=== PATIENT | male | born 1960 | race Two or more races ===

== ENCOUNTER 2021-06-14 12:12 | Emergency (ER) | payer OTHER ==
[~2021-06-14] VITALS: Ht 175.3 cm; Wt 74.8 kg
[2021-06-14] MEDS ORDERED: IBUPROFEN 800 MG TAB PO ONE ×2 (15:19→15:30)
[2021-06-14] MEDS ORDERED: ACETAMINOPHEN 500 MG TAB PO ONE (15:30)
[2021-06-14 15:47] VITALS: BP 127/106
== END 2021-06-14 15:45 | disposition home or self-care (01) ==
LOC: EDBD 12:12 → ER 12:12
DX: S62.610A Displaced fracture of proximal phalanx of right index finger, initial encounter for closed fracture (principal); W01.0XXA Fall on same level from slipping, tripping and stumbling without subsequent striking against object, initial encounter; Y93.89 Activity, other specified; Y92.89 Other specified places as the place of occurrence of the external cause; Y99.8 Other external cause status
CPT/HCPCS: 26770; 73130

== ENCOUNTER 2022-08-14 08:43 | Emergency (ER) | payer OTHER ==
[~2022-08-14] VITALS: Ht 177.8 cm; Wt 63.6 kg
[2022-08-14 09:44] VITALS: BP 118/80
== END 2022-08-14 09:49 | disposition home or self-care (01) ==
LOC: ER 08:43
DX: S01.01XA Laceration without foreign body of scalp, initial encounter (principal); W18.00XA Striking against unspecified object with subsequent fall, initial encounter; Y93.89 Activity, other specified; Y92.89 Other specified places as the place of occurrence of the external cause; Y99.8 Other external cause status
CPT/HCPCS: 12001; 99282; J7030

== ENCOUNTER 2022-09-08 08:26 | Inpatient (IN) | payer OTHER ==
[~2022-09-08] VITALS: Ht 180.3 cm; Wt 86.9 kg
[2022-09-08] MEDS ORDERED: AZITHROMYCIN 500MG/ 250ML 250 ML IV ONE (10:45)
[2022-09-08] MEDS ORDERED: LORazepam 2MG/ML-1ML VIAL IM ONE (10:45)
[2022-09-08] MEDS ORDERED: DexAMETHasone INJECTION 10 MG in D5W 5% 50 ML IV ONE (10:45)
[2022-09-08] MEDS ORDERED: SODIUM CHLORIDE 0.9% 1,000 ML IV ONE ×3 (10:45→15:15)
[2022-09-08 11:07] LABS: Basophils # (auto) 0 10 ^3/uL (0-0.2); Basophils % (auto) 0.1 % (0.0-2.0); Eosinophils # (auto) 0 10 ^3/uL (0-0.8); Hematocrit 38.4 % (41.0-53.0); Hemoglobin 12.8 g/dL (13.5-17.5); Lymphocytes # (auto) 1.7 10 ^3/uL (0.4-5.4); Lymphocytes % (auto) 9.5 % (10.0-50.0); Mean Corpuscular Hgb Conc. 33.2 g/dL (32.0-36.0); Mean Corpuscular Volume 81.4 fL (80.0-100.0); Monocytes # (auto) 1.4 10 ^3/uL (0-1.3); Monocytes % (auto) 8.1 % (0.0-12.0); Neutrophils # (auto) 14.5 10 ^3/uL (1.6-8.6); Neutrophils % (auto) 82.3 % (37.0-80.0); Nucleated Red Blood Cells % 0.1 %; Red Blood Cells 4.72 10^6/uL (4.5-5.90); Red Cell Distribution Width 14.3 % (11.8-14.3); White Blood Cell 17.6 10^3/uL (4.4-10.8)
[2022-09-08 11:23] LABS: Albumin 3.2 g/dL (3.4-5.0); Calcium 8.8 mg/dL (8.5-10.1); Magnesium 2.4 mg/dL (1.6-2.6); Potassium 3.8 mmol/L (3.5-5.1)
[2022-09-08 11:27] LABS: BUN/Creatinine Ratio 18.6 (10.0-20.0); Bilirubin, Total 1.3 mg/dL (0.2-1.0); Total Protein 7.4 g/dL (6.4-8.2)
[2022-09-08] MEDS ORDERED: LOVA20TA4 PO (15:13)
[2022-09-08] MEDS ORDERED: MORPHINE SULFATE INJ 2 MG/ml SYRG IV PRN (15:15)
[2022-09-08] MEDS ORDERED: DOCUSATE SOD 100 MG CAP PO PRN (15:15)
[2022-09-08] MEDS ORDERED: NITROGLYCERIN 0.4 MG SL TAB SL PRN (15:15)
[2022-09-08] MEDS ORDERED: ACETAMINOPHEN 325 MG TAB PO PRN (15:15)
[2022-09-08] MEDS ORDERED: HYDROcodone-ACET 5/325MG TAB PO PRN (15:15)
[2022-09-08] MEDS ORDERED: cefTRIAXone 1GM/50ML D5W 50 ML IV ONE (15:15)
[2022-09-08] MEDS ORDERED: ONDANSETRON HCL 4 MG/2 ML VIAL IV PRN (15:15)
[2022-09-09 05:48] LABS: Basophils # (auto) 0 10 ^3/uL (0-0.2); Basophils % (auto) 0.1 % (0.0-2.0); Eosinophils # (auto) 0 10 ^3/uL (0-0.8); Hematocrit 32.8 % (41.0-53.0); Hemoglobin 11.4 g/dL (13.5-17.5); Lymphocytes # (auto) 1.3 10 ^3/uL (0.4-5.4); Lymphocytes % (auto) 9.7 % (10.0-50.0); Mean Corpuscular Hemoglobin 27.7 pg (28.0-32.0); Mean Corpuscular Hgb Conc. 34.7 g/dL (32.0-36.0); Mean Corpuscular Volume 79.7 fL (80.0-100.0); Monocytes # (auto) 0.5 10 ^3/uL (0-1.3); Monocytes % (auto) 3.7 % (0.0-12.0); Neutrophils # (auto) 11.8 10 ^3/uL (1.6-8.6); Neutrophils % (auto) 86.5 % (37.0-80.0); Red Blood Cells 4.12 10^6/uL (4.5-5.90); White Blood Cell 13.7 10^3/uL (4.4-10.8)
[2022-09-09 06:09] LABS: BUN/Creatinine Ratio 22.5 (10.0-20.0); Calcium 8.9 mg/dL (8.5-10.1); Potassium 3.9 mmol/L (3.5-5.1)
[2022-09-09] MEDS: cefTRIAXone 1GM/50ML D5W 50 ML IV SCH (09:00)
[2022-09-09] MEDS: AZITHROMYCIN 500MG/ 250ML 250 ML IV SCH (10:30)
[2022-09-09] MEDS: ASPirin 81 mg TAB PO SCH (10:31)
[2022-09-09] MEDS ORDERED: ATORVASTATIN 20 MG TAB PO SCH (22:00)
[2022-09-09 22:32] VITALS: BP 156/75
[2022-09-09 22:33] VITALS: BP 156/75
[2022-09-10] VITALS (7 sets, daily range): BP systolic 89–110; BP diastolic 45–56
[2022-09-10 06:28] LABS: Basophils # (auto) 0 10 ^3/uL (0-0.2); Basophils % (auto) 0.1 % (0.0-2.0); Eosinophils # (auto) 0 10 ^3/uL (0-0.8); Eosinophils % (auto) 0.2 % (0.0-7.0); Hematocrit 32.6 % (41.0-53.0); Lymphocytes % (auto) 13.9 % (10.0-50.0); Mean Corpuscular Hemoglobin 27.2 pg (28.0-32.0); Mean Corpuscular Hgb Conc. 33.9 g/dL (32.0-36.0); Mean Corpuscular Volume 80.1 fL (80.0-100.0); Monocytes # (auto) 1.2 10 ^3/uL (0-1.3); Monocytes % (auto) 8.3 % (0.0-12.0); Neutrophils # (auto) 11.3 10 ^3/uL (1.6-8.6); Neutrophils % (auto) 77.5 % (37.0-80.0); Red Blood Cells 4.07 10^6/uL (4.5-5.90); Red Cell Distribution Width 14.4 % (11.8-14.3); White Blood Cell 14.5 10^3/uL (4.4-10.8)
[2022-09-10 07:48] LABS: Urine Bacteria NONE SEEN /hpf (None Seen); Urine Blood Negative /uL (Negative); Urine Mucus FEW (None Seen); Urine Specific Gravity 1.036 (1.001-1.035); Urine WBC 2 /hpf (0 - 3)
[2022-09-10] MEDS: ASPirin 81 mg TAB PO SCH (10:30)
[2022-09-10] MEDS: cefTRIAXone 1GM/50ML D5W 50 ML IV SCH (10:30)
[2022-09-10] MEDS ORDERED: GUAI100S6 PO (10:33)
[2022-09-10] MEDS ORDERED: SERT50TA19 PO (10:34)
[2022-09-10] MEDS: AZITHROMYCIN 500MG/ 250ML 250 ML IV SCH (11:20)
[2022-09-10] MEDS: SODIUM CHLORIDE 0.9% 1,000 ML IV SCH (17:30)
[2022-09-10] MEDS ORDERED: SODIUM CHLORIDE 0.9% 1,000 ML IV ONE (17:30)
[2022-09-10] MEDS ORDERED: PIPERACILLIN-TAZOB 3.375GM 100 ML IV SCH (18:00)
[2022-09-10] MEDS: PIPERACILLIN-TAZOB 3.375GM 100 ML IV SCH (21:34)
[2022-09-10] MEDS ORDERED: ATORVASTATIN 20 MG TAB PO SCH (22:00)
[2022-09-11] MEDS: PIPERACILLIN-TAZOB 3.375GM 100 ML IV SCH ×3 (04:14→16:00)
[2022-09-11] MEDS: SODIUM CHLORIDE 0.9% 1,000 ML IV SCH (04:25)
[2022-09-11 05:00] VITALS: BP 107/63
[2022-09-11 06:15] LABS: Basophils # (auto) 0 10 ^3/uL (0-0.2); Basophils % (auto) 0.3 % (0.0-2.0); Eosinophils # (auto) 0.2 10 ^3/uL (0-0.8); Lymphocytes # (auto) 2.3 10 ^3/uL (0.4-5.4); Lymphocytes % (auto) 23.9 % (10.0-50.0); Mean Corpuscular Hemoglobin 28.3 pg (28.0-32.0); Mean Corpuscular Hgb Conc. 34.2 g/dL (32.0-36.0); Mean Corpuscular Volume 82.8 fL (80.0-100.0); Monocytes # (auto) 0.9 10 ^3/uL (0-1.3); Monocytes % (auto) 9.2 % (0.0-12.0); Neutrophils # (auto) 6.2 10 ^3/uL (1.6-8.6); Neutrophils % (auto) 64.6 % (37.0-80.0); Nucleated Red Blood Cells % 0.1 %; Red Blood Cells 3.87 10^6/uL (4.5-5.90); Red Cell Distribution Width 14.6 % (11.8-14.3); White Blood Cell 9.7 10^3/uL (4.4-10.8)
[2022-09-11 08:00] VITALS: BP 109/54
[2022-09-11 09:00] VITALS: BP 109/54
[2022-09-11] MEDS ORDERED: SERTRALINE HCL 50 MG TAB PO SCH (10:00)
[2022-09-11] MEDS: ASPirin 81 mg TAB PO SCH (10:08)
[2022-09-11 13:00] VITALS: BP 101/59
[2022-09-11] MEDS ORDERED: AMOX-277 PO (13:40)
[2022-09-11 15:21] VITALS: BP 127/76
== END 2022-09-11 16:33 | disposition home health service (06) | DRG 871 ==
LOC: ER 08:26 → TELE 15:11 → TELE-EAST 09-09 22:32
PROVIDERS: ADMIT Internal Medicine; ATTEND Internal Medicine
DX: A41.9 Sepsis, unspecified organism (principal); I21.A1 Myocardial infarction type 2; J18.9 Pneumonia, unspecified organism; F41.9 Anxiety disorder, unspecified; G80.9 Cerebral palsy, unspecified; R62.7 Adult failure to thrive; E78.5 Hyperlipidemia, unspecified; Z68.26 Body mass index [BMI] 26.0-26.9, adult; Z20.822 Contact with and (suspected) exposure to COVID-19
CPT/HCPCS: 36415; 71045; 80048; 80053; 81001; 83605; 83735; 83880; 84484; 85025; 87040; 87426; 87804; 96365; 96367; 96372; G0378; J0696; J1100; J2543; J7060